=== PATIENT | male | born 1935 | race Caucasian/White ===

== ENCOUNTER 2018-08-18 10:15 | Day surgery (SDC) | payer MEDICARE, OTHER ==
[~2018-08-18 10:15] MED LIST: EPINEPHRINE INJ/PF 1 MG/1 ML AMPULE ONE; KETOROLAC TROMETHAMINE 0.45% 4 DROP/0.4 ML DROPERETTE OD PRN; LIDOCAINE 1%/PHENYLEPHRINE 1.5% 1 ML VIAL ONE
[2018-08-18] MEDS: CYCLOPENTOLATE 0.2%/PHENYLEPHRINE 1% OPH SOLN 2 ML OD PRN ×3 (10:50→11:11)
[2018-08-18] MEDS: BESIFLOXACIN HCL 0.6% OPH SUSP 5 ML BOTTLE OD PRN ×4 (10:50→12:01)
[2018-08-18] MEDS: TROPICAMIDE 1% OPH SOLN 3 ML OD PRN ×3 (10:50→11:11)
[2018-08-18] MEDS: TETRACAINE HCL 0.5% OPH SOLN 0.6 ML DROPERETTE OD PRN ×3 (10:51→11:30)
[2018-08-18] MEDS ORDERED: FENTANYL CITRATE INJ/PF 100 MCG/2 ML AMPUL ONE (11:09)
[2018-08-18] MEDS ORDERED: MIDAZOLAM 2 MG/2 ML INJ ONE (11:09)
[2018-08-18] MEDS: TOBRAMYCIN SULFATE/DEXAMETH OPH OINTMENT 3.5 GM ONE ×2 (12:01)
[2018-08-18] MEDS ORDERED: CHONDR SU A NA/HYALUR INTRAOC KIT (SURGICARE) ONE (12:39)
== END 2018-08-18 12:59 | disposition home or self-care (01) ==
LOC: SC 10:15
PROVIDERS: ATTEND Ophthalmology
DX: H25.11 Age-related nuclear cataract, right eye (principal); Z98.41 Cataract extraction status, right eye; E11.9 Type 2 diabetes mellitus without complications; M19.90 Unspecified osteoarthritis, unspecified site; J44.9 Chronic obstructive pulmonary disease, unspecified; I10 Essential (primary) hypertension; N40.0 Benign prostatic hyperplasia without lower urinary tract symptoms; E78.00 Pure hypercholesterolemia, unspecified; I25.10 Atherosclerotic heart disease of native coronary artery without angina pectoris; Z79.82 Long term (current) use of aspirin; Z85.828 Personal history of other malignant neoplasm of skin; Z87.891 Personal history of nicotine dependence; Z79.899 Other long term (current) drug therapy; Z79.51 Long term (current) use of inhaled steroids; Z79.84 Long term (current) use of oral hypoglycemic drugs; Z79.4 Long term (current) use of insulin; Z94.0 Kidney transplant status; Z85.3 Personal history of malignant neoplasm of breast
CPT/HCPCS: 66982; 82962; V2630; J2250; J3490 ×2; A9270; J0171; J3010; J2370; 142

== ENCOUNTER 2018-09-01 10:08 | Day surgery (SDC) | payer MEDICARE, OTHER ==
[~2018-09-01 10:08] MED LIST changes: +CHONDR SU A NA/HYALUR INTRAOC KIT (SURGICARE) ONE; -KETOROLAC TROMETHAMINE 0.45% 4 DROP/0.4 ML DROPERETTE OD PRN; +KETOROLAC TROMETHAMINE 0.45% 4 DROP/0.4 ML DROPERETTE OS PRN; +MIDAZOLAM 2 MG/2 ML INJ ONE
[2018-09-01] MEDS: BESIFLOXACIN HCL 0.6% OPH SUSP 5 ML BOTTLE OS PRN ×4 (10:43→11:45)
[2018-09-01] MEDS: TROPICAMIDE 1% OPH SOLN 3 ML OS PRN ×3 (10:43→11:03)
[2018-09-01] MEDS: CYCLOPENTOLATE 0.2%/PHENYLEPHRINE 1% OPH SOLN 2 ML OS PRN ×3 (10:43→11:03)
[2018-09-01] MEDS: TETRACAINE HCL 0.5% OPH SOLN 0.6 ML DROPERETTE OS PRN ×3 (10:44→11:19)
[2018-09-01] MEDS: TOBRAMYCIN SULFATE/DEXAMETH OPH OINTMENT 3.5 GM ONE ×2 (11:45)
== END 2018-09-01 12:43 | disposition home or self-care (01) ==
LOC: SC 10:08
PROVIDERS: ATTEND Ophthalmology
DX: H25.12 Age-related nuclear cataract, left eye (principal); Z98.41 Cataract extraction status, right eye; J44.9 Chronic obstructive pulmonary disease, unspecified; I25.10 Atherosclerotic heart disease of native coronary artery without angina pectoris; E11.9 Type 2 diabetes mellitus without complications; I10 Essential (primary) hypertension; E78.00 Pure hypercholesterolemia, unspecified; N40.0 Benign prostatic hyperplasia without lower urinary tract symptoms; Z85.828 Personal history of other malignant neoplasm of skin; Z94.0 Kidney transplant status; Z79.51 Long term (current) use of inhaled steroids; Z79.84 Long term (current) use of oral hypoglycemic drugs; Z79.4 Long term (current) use of insulin; Z79.899 Other long term (current) drug therapy; Z87.891 Personal history of nicotine dependence
CPT/HCPCS: 66982; 82962; V2630; J2250; J3490 ×2; A9270; J0171; J2370; 142

== ENCOUNTER → 2018-12-21 | Outpatient (CLI) | payer OTHER ==
--- NOTE | 2018-12-21 16:45 | WOMENS IMAGING REPORT ---
EXAM DESCRIPTION: BILAT DIAGNOSTIC MAMMO W/CAD; U/S BREAST UNILAT LIMITED COMPLETED DATE/TIME: 12/21/2018 11:20 am; 12/21/2018 11:50 am REASON FOR STUDY: D49.3; LT BREAST MASS D49.3 COMPARISON: CT chest 10/11/2018, 01/03/2016, 09/20/2008 EXAM PARAMETERS: Standard craniocaudal and mediolateral oblique views of each breast recorded using digital acquisition. Additional left male breast 90 mediolateral view and left breast ultrasound/left axilla ultrasound w as performed. Read with the assistance of CAD: .[facility] - [employer] App[employer] Coordinator Version 9.2 LIMITATIONS: None. FINDINGS: RIGHT BREAST MASSES: No suspicious masses. CALCIFICATIONS: No new or suspicious calcifications. ARCHITECTURAL DISTORTION: None. DEVELOPING DENSITY: None. ASYMMETRY: None noted. OTHER: There is right-sided gynecomastia present. LEFT BREAST MASSES: In the left male breast retroareolar region, a 7 x 6 cm solid mass is present with well-circu mscribed margins. No associated calcifications. No architectural distortion. This mass was present on CT chest 10/11/2018, about 7 cm in greatest diameter. This mass was present on CT chest 01/03/2016, 5 cm in diameter. This mass was 1 cm in size [id number] chest CT. Biopsy of this mass is indicated. B I-RADS 5, suspicious for malignancy. CALCIFICATIONS: No new or suspicious calcifications. ARCHITECTURAL DISTORTION: None. DEVELOPING DENSITY: None. ASYMMETRY: None noted. OTHER: No other significant finding. Left male breast ultrasound: In the left male breast retroareolar region, a 7 x 6 cm solid mass is present with well-circumscribed margins and acoustic through transmission. Minimal internal color flow. Although this could repres ent a large fibroadenoma, sizes and heterogeneity of the mass is worrisome for malignancy, phylloides tumor is possible. Biopsy is indicated. Ultrasound over the left axilla demonstrates no enlarged lymph nodes. IMPRESSION: 7 x 6 cm solid left male breast mass. Findings are worrisome for male breast cancer or phylloides tumor ASSESSMENT:BIRADS 5: HIGHLY SUGGESTIVE OF MALIGNANCY. BIOPSY SHOULD BE PERFORMED IN THE ABSENCE OF CL INICAL INDICATION. BREAST DENSITY: a. The breasts are almost entirely fatty. BIRAD: 5 Highly suggestive of malignancy. Biopsy should be performed in the absence of clinical cont ra-indication. RECOMMENDATION: RECOMMENDED FOLLOW UP: Left male breast mass biopsy SPECIFIC INTERVENTION/IMAGING/CONSULTATION RECOMMENDED:Left male breast biopsy COMMUNICATION:Patient notified by letter COMMENT: The patient has been notified of the results by letter per SA requirements. Additional no tification policies are in place for contacting patient with suspicious or incomplete findings. Quality ID #225: The [employer] recommends an annual screening mammogram for women aged 40 years or over. This facility utilizes a reminder system to ensure that all patients receive reminder letters, and/or direct phone calls for appointments. This includes reminders for routine scr eening mammograms, diagnostic mammograms, or other Breast Imaging Interventions when appropriate. Th is patient will be placed in the appropriate reminder system. TECHNICAL DOCUMENTATION: FINDING NUMBER: (1) ASSESSMENT: (1) JOB ID: [id number] [employer]- All Rights Reserved Reading location - IP/workstation name: [email or web address]
--- NOTE | 2018-12-21 16:45 | WOMENS IMAGING REPORT ---
EXAM DESCRIPTION: BILAT DIAGNOSTIC MAMMO W/CAD; U/S BREAST UNILAT LIMITED COMPLETED DATE/TIME: 12/21/2018 11:20 am; 12/21/2018 11:50 am REASON FOR STUDY: D49.3; LT BREAST MASS D49.3 COMPARISON: CT chest 10/11/2018, 01/03/2016, 09/20/2008 EXAM PARAMETERS: Standard craniocaudal and mediolateral oblique views of each breast recorded using digital acquisition. Additional left male breast 90 mediolateral view and left breast ultrasound/left axilla ultrasound w as performed. Read with the assistance of CAD: .[facility] - [employer] Developer Version 9.2 LIMITATIONS: None. FINDINGS: RIGHT BREAST MASSES: No suspicious masses. CALCIFICATIONS: No new or suspicious calcifications. ARCHITECTURAL DISTORTION: None. DEVELOPING DENSITY: None. ASYMMETRY: None noted. OTHER: There is right-sided gynecomastia present. LEFT BREAST MASSES: In the left male breast retroareolar region, a 7 x 6 cm solid mass is present with well-circu mscribed margins. No associated calcifications. No architectural distortion. This mass was present on CT chest 10/11/2018, about 7 cm in greatest diameter. This mass was present on CT chest 01/03/2016, 5 cm in diameter. This mass was 1 cm in size [id number] chest CT. Biopsy of this mass is indicated. B I-RADS 5, suspicious for malignancy. CALCIFICATIONS: No new or suspicious calcifications. ARCHITECTURAL DISTORTION: None. DEVELOPING DENSITY: None. ASYMMETRY: None noted. OTHER: No other significant finding. Left male breast ultrasound: In the left male breast retroareolar region, a 7 x 6 cm solid mass is present with well-circumscribed margins and acoustic through transmission. Minimal internal color flow. Although this could repres ent a large fibroadenoma, sizes and heterogeneity of the mass is worrisome for malignancy, phylloides tumor is possible. Biopsy is indicated. Ultrasound over the left axilla demonstrates no enlarged lymph nodes. IMPRESSION: 7 x 6 cm solid left male breast mass. Findings are worrisome for male breast cancer or phylloides tumor ASSESSMENT:BIRADS 5: HIGHLY SUGGESTIVE OF MALIGNANCY. BIOPSY SHOULD BE PERFORMED IN THE ABSENCE OF CL INICAL INDICATION. BREAST DENSITY: a. The breasts are almost entirely fatty. BIRAD: 5 Highly suggestive of malignancy. Biopsy should be performed in the absence of clinical cont ra-indication. RECOMMENDATION: RECOMMENDED FOLLOW UP: Left male breast mass biopsy SPECIFIC INTERVENTION/IMAGING/CONSULTATION RECOMMENDED:Left male breast biopsy COMMUNICATION:Patient notified by letter COMMENT: The patient has been notified of the results by letter per SA requirements. Additional no tification policies are in place for contacting patient with suspicious or incomplete findings. Quality ID #225: The [employer] recommends an annual screening mammogram for women aged 40 years or over. This facility utilizes a reminder system to ensure that all patients receive reminder letters, and/or direct phone calls for appointments. This includes reminders for routine scr eening mammograms, diagnostic mammograms, or other Breast Imaging Interventions when appropriate. Th is patient will be placed in the appropriate reminder system. TECHNICAL DOCUMENTATION: FINDING NUMBER: (1) ASSESSMENT: (1) JOB ID: [id number] [employer]- All Rights Reserved Reading location - IP/workstation name: [email or web address]
== END ==
LOC: WI 10:38
PROVIDERS: ATTEND Physician Assistant
DX: D49.3 Neoplasm of unspecified behavior of breast (principal)
CPT/HCPCS: 76642; 77066

== ENCOUNTER 2019-02-20 11:16 | Emergency (ER) | payer MEDICARE, OTHER ==
--- NOTE | 2019-02-20 12:19 | ER Document Report ---
ED Fall - General Chief Complaint: Fall Stated Complaint: LEG SWELLING Time Seen by Provider: 02/20/19 11:29 Primary Care Provider: SHAUNA FRASER PA-C [Primary Care Provider] - Follow up as needed Information source: Patient Notes: HPI: 83-year-old male who presents today with some pain to the left ankle and left knee. Patient states he was getting out of bed yesterday and his "left knee gave out". He states he landed catching himself on the bed. He denies any headache, neck pain, chest pain, palpitations, belly pain, nausea or vomiting. Patient states when he fell yesterday a sales activity manager came to the house and his blood sugar was 30. They gave the patient some sugar. He states his blood sugars have been stable since then. He believes his blood sugar fell because after he took his insulin as when he had his event and he was unable to eat. Patient has been walking with a walker yesterday. Patient states the pain to the ankle and the knee has just increased. He states he did not hit his head. He has no headache. He denies being on blood thinning medications ROS: See HPI All other review of systems reviewed and otherwise negative Reviewed vital signs and nursing note as charted by RN. PHYSICAL EXAM: CONSTITUTIONAL: Alert and oriented and responds appropriately to questions. Well-appearing; well-nourished HEAD: Normocephalic; atraumatic EYES: PERRL; full extraocular range of motion; conjunctivae clear, sclerae non- icteric ENT: Normal nose; no rhinorrhea; moist mucous membranes; pharynx without lesions noted NECK: Supple without meningismus; non-tender; no cervical lymphadenopathy, no masses CARD: Regular rate and rhythm; no murmurs; symmetric distal pulses RESP: Normal chest excursion without splinting or tachypnea; breath sounds clear and equal bilaterally ABD/GI: Normal bowel sounds; non-distended; soft, non-tender BACK: The back appears normal and is non-tender to palpation EXT: Patient has some tenderness and swelling mostly to the lateral malleolus of the left ankle. Patient is able to flex at the knee. No tenderness or ecchymosis to the leg or hip SKIN: No acute lesions noted NEURO: CN 2-12 intact; 5/5 bilateral upper and lower extremity strength with sensation intact to light touch PSYCH: The patient's mood and manner are appropriate. Grooming and personal hygiene are appropriate. TRAVEL OUTSIDE OF THE [place] IN LAST 30 DAYS: No - Related data Allergies/Adverse Reactions: No Known Allergies Allergy (Verified 08/27/18 11:26) Past Medical History - Social History Smoking Status: Former Smoker Chew tobacco use (# tins/day): No Frequency of alcohol use: Rare Drug Abuse: None Family History: Reviewed & Not Pertinent Patient has suicidal ideation: No Patient has homicidal ideation: No - Past Medical History Cardiac Medical History: Reports: Hx Hypercholesterolemia, Hx Hypertension Denies: Hx Heart Attack Pulmonary Medical History: Reports: Hx COPD Denies: Hx Asthma Neurological Medical History: Denies: Hx Cerebrovascular Accident, Hx Seizures Endocrine Medical History: Reports: Hx Diabetes Mellitus Type 2 Renal/ Medical History: Denies: Hx Peritoneal Dialysis GI Medical History: Denies: Hx Hepatitis, Hx Hiatal Hernia, Hx Ulcer Infectious Medical History: Denies: Hx Hepatitis Past Surgical History: Reports: Hx Cardiac Surgery - STENT, Hx Kidney (Renal Surgery) - TRANSPLANT, Hx Orthopedic Surgery - R KNEE, L SHOULDER. Denies: Hx Open Heart Surgery, Hx Pacemaker Physical Exam - Vital signs Vitals: BP 181/107 H 02/20/19 11:19 Course - Re-evaluation Re-evalutation: 02/20/19 12:19 Given the above history and physical we will order an x-ray of the left ankle, knee, and hip. No tenderness to palpation of the thigh or tibia/fibula. Patient did not hit his head and has no obvious signs of trauma. I will check basic labs given the patient's low glucose yesterday. 02/20/19 12:22 EKG shows a heart rate of 90, right bundle branch block, normal sinus rhythm, normal axis, no obvious ST elevation or depression 02/20/19 13:51 X-rays and labs as recorded. No change in exam. We will place the patient in a posterior with an ankle stirrup and have the patient follow-up with orthopedics. X-rays, labs, and hemoglobin as recorded. 02/20/19 14:49 Patient will be placed into a splint and discharged home with local orthopedic follow-up. We do not have an orthopedic doctor senior front end web developer at this time. Patient does have insurance. Patient understands to attempt to limit weightbearing. He has a who is able to care for him at home. Patient is very comfortable with this plan. Strict return precautions have been explained. - Vital Signs Vital signs: Temp Pulse Resp BP Pulse Ox 98.8 F 97 22 H 171/82 H 97 02/20/19 13:07 02/20/19 11:34 02/20/19 13:01 02/20/19 13:01 02/20/19 13:01 - Laboratory Result Diagrams: 02/20/19 12:53 02/20/19 12:53 Laboratory results interpreted by me: 02/20/19 02/20/19 12:53 12:53 RBC 4.25 L Hgb 10.8 L Hct 34.2 L MCH 25.4 L MCHC 31.5 L RDW 16.6 H Chloride 108 H Glucose 125 H Discharge - Discharge Clinical Impression: Closed left fibular fracture Qualifiers: Encounter type: initial encounter Fibula location: distal Fracture morphology: unspecified fracture morphology Qualified Code(s): S82.832A - Other fracture of upper and lower end of left fibula, initial encounter for closed fracture Accidental fall Qualifiers: Encounter type: initial encounter Qualified Code(s): W19.XXXA - Unspecified fall, initial encounter Condition: Good Disposition: HOME, SELF-CARE Additional Instructions: Come back immediately with any increased pain, swelling, weakness or numbness, fever, chest pain or shortness of breath, or any other acute problems. Please attempt to limit weightbearing on that leg. Please elevate the leg above the level of the heart when resting. Please follow-up by calling Dr. Allred the orthopedic doctor office tomorrow and tell them that you was seen in the emergency department with a fracture and were told to be seen on Thursday or Thursday of this week. Referrals: SHAUNA FRASER PA-C [Primary Care Provider] - Follow up as needed JESSIE ALLRED MD [ACTIVE STAFF] - Follow up as needed
--- NOTE | 2019-02-20 13:01 | RADIOLOGY REPORT (SQ) ---
EXAM DESCRIPTION: ANKLE LEFT COMPLETE COMPLETED DATE/TIME: 02/20/2019 12:51 pm REASON FOR STUDY: 16; fall COMPARISON: None. NUMBER OF VIEWS: Three views. TECHNIQUE: AP, lateral, and oblique radiographic images acquired of the left ankle. LIMITATIONS: None. FINDINGS: MINERALIZATION: Osteopenia. BONES: Spiral fracture of the distal fibular proximal to the mortise. JOINTS: No effusions. SOFT TISSUES: No soft tissue swelling. No foreign body. OTHER: No other significant finding. IMPRESSION: Spiral fracture of the distal fibular proximal to the mortise. TECHNICAL DOCUMENTATION: JOB ID: [id number] [employer]- All Rights Reserved Reading location - IP/workstation name: [email or web address]
--- NOTE | 2019-02-20 13:02 | RADIOLOGY REPORT (SQ) ---
EXAM DESCRIPTION: HIP LEFT AP/LATERAL COMPLETED DATE/TIME: 02/20/2019 12:51 pm REASON FOR STUDY: 16; fall COMPARISON: None. NUMBER OF VIEWS: Three views. TECHNIQUE: AP pelvis and additional AP and frog-leg view of the left hip. LIMITATIONS: None. FINDINGS: MINERALIZATION: Normal. LEFT HIP: Total hip replacement. No acute fracture. RIGHT HIP: No fracture or dislocation. No worrisome bone lesions. PUBIS AND ISCHIUM: No fracture. PELVIS: No fracture. SACRUM: No fracture or dislocation. No worrisome bone lesions. LOWER LUMBAR SPINE: Marked degenerative disc disease. SOFT TISSUES: No findings. OTHER: No other significant finding. IMPRESSION: Total hip replacement on the left. No acute fracture. TECHNICAL DOCUMENTATION: JOB ID: [id number] [employer]- All Rights Reserved Reading location - IP/workstation name: [email or web address]
--- NOTE | 2019-02-20 13:03 | RADIOLOGY REPORT (SQ) ---
EXAM DESCRIPTION: KNEE LEFT 4 VIEW COMPLETED DATE/TIME: 02/20/2019 12:51 pm REASON FOR STUDY: 16; fall COMPARISON: None. NUMBER OF VIEWS: Four views. TECHNIQUE: AP, lateral, and both oblique radiographic images acquired of the left knee. LIMITATIONS: None. FINDINGS: MINERALIZATION: Normal. BONES: No acute fracture or dislocation. No worrisome bone lesions. No significant osteophytes. JOINT: Chondrocalcinosis. No joint effusion. OTHER: No other significant finding. IMPRESSION: No acute fracture. TECHNICAL DOCUMENTATION: JOB ID: [id number] [employer]- All Rights Reserved Reading location - IP/workstation name: [email or web address]
[2019-02-20 13:07] LABS: ABSOLUTE BASOPHILS # (AUTO) 0.1 10^3/uL (0.0-0.2); ABSOLUTE EOSINOPHILS # (AUTO) 0.3 10^3/uL (0.0-0.6); ABSOLUTE LYMPHOCYTES (AUTO) 1.4 10^3/uL (0.5-4.7); ABSOLUTE MONOCYTES (AUTO) 1.1 10^3/uL (0.1-1.4); ABSOLUTE NEUT (AUTO) 7.6 10^3/uL (1.7-8.2); BASOPHILS % (AUTO) 0.5 % (0-2); EOSINOPHILS % (AUTO) 3.1 % (0-6); HEMATOCRIT 34.2 % (37.9-51.0); HEMOGLOBIN 10.8 g/dL (13.5-17.0); MEAN CORPUSCULAR HEMOGLOBIN 25.4 pg (27.0-33.4); MEAN CORPUSCULAR HGB CONC 31.5 g/dL (32.0-36.0); MEAN CORPUSCULAR VOLUME 80 fl (80-97); MONOCYTES % (AUTO) 10.7 % (3-13); PLATELET COUNT 254 10^3/uL (150-450); RED BLOOD COUNT 4.25 10^6/uL (4.35-5.55); RED CELL DISTRIBUTION WIDTH 16.6 % (11.5-14.0); SEGMENTED NEUTROPHILS % (AUTO) 72.7 % (42-78); TOTAL CELLS COUNTED % (AUTO) 100 %; WHITE BLOOD COUNT 10.4 10^3/uL (4.0-10.5)
[2019-02-20 13:22] LABS: ANION GAP 8 (5-19); BLOOD UREA NITROGEN 18 mg/dL (7-20); CALCIUM 9.4 mg/dL (8.4-10.2); CARBON DIOXIDE 28 mmol/L (22-30); CHLORIDE 108 mmol/L (98-107); GLUCOSE 125 mg/dL (75-110)
[2019-02-20] MEDS ORDERED: HYDROCODONE/ACETAMINOPHEN 5-325 MG TABLET PO ONE (14:05)
[2019-02-20 16:37] VITALS: BP 176/79
--- NOTE | 2019-02-20 21:51 | EKG REPORT ---
SEVERITY:- ABNORMAL ECG - SINUS RHYTHM RIGHT BUNDLE BRANCH BLOCK PROBABLE ANTEROSEPTAL INFARCT, AGE INDETERM : Confirmed by: Andres Roberts 20-Feb-2019 21:50:47
== END 2019-02-20 17:06 | disposition home or self-care (01) ==
LOC: ER 11:16
DX: S82.832A Other fracture of upper and lower end of left fibula, initial encounter for closed fracture (principal); W19.XXXA Unspecified fall, initial encounter; E11.9 Type 2 diabetes mellitus without complications; J44.9 Chronic obstructive pulmonary disease, unspecified; Z94.0 Kidney transplant status; Z79.4 Long term (current) use of insulin
CPT/HCPCS: 93005; 99284; 96365; 36415; 85025; 80048; 73610; 73502; 73564; 93010; A9270